=== PATIENT | female | born 1960 | race Caucasian/White ===

== ENCOUNTER 2017-10-22 11:36 | Inpatient (IN) | payer MEDICAID ==
[2017-10-22] MEDS ORDERED: Sodium Chloride 0.9% 1,000 ML IV ONE (12:00)
--- NOTE | 2017-10-22 12:06 | ED Physician Chart ---
ED Chief Complaint/HPI - Patient Information Date Seen:: 10/22/17 Time Seen:: 11:40 Chief Complaint:: Abdominal Pain History of Present Illness:: onset x one day of intermittent, diffuse, crampy abdominal pain and flank pain; pt denies trauma, H/As, neck pain, C/P, SOB, cough, A/N/V/D/C, fever, chills, or urinary s/s Allergies:: Allergies Allergy/AdvReac Type Severity Reaction Status Date / Time No Known Allergies Allergy Verified 10/22/17 11:40 Vitals:: Vital Signs - 8 hr 10/22/17 11:41 Temp 97.4 F HR 74 RR 16 BP 146/84 O2 Sat % 100 Historian:: Patient Review:: Nurse's Note Reviewed ED Review of Systems - Review of Systems General/Constitutional: No fever, No chills, No weight loss, No weakness, No diaphoresis, No edema, No loss of appetite Skin: No skin lesions, No rash, No bruising Head: No headache, No light-headedness Eyes: No loss of vision, No pain, No diplopia ENT: No earache, No nasal drainage, No sore throat, No tinnitus Neck: No neck pain, No swelling, No thyromegaly, No stiffness, No mass noted Cardio Vascular: No chest pain, No palpitations, No PND, No orthopnea, No edema Pulmonary: No SOB, No cough, No sputum, No wheezing GI: Nausea, Vomiting, Diarrhea, Pain, No melena, No hematochezia, No constipation, No hematemesis G/U: No dysuria, No frequency, No hematuria, No nacturia [employer] 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: No vaginal discharge, No abnormal vaginal bleed, No contraction Musculoskeletal: No bone or joint pain, No back pain, No muscle pain Endocrine: No polyuria, No polydipsia Psychiatric: No prior psych history, No depression, No anxiety, No suicidal ideation, No homicidal ideation, No auditory hallucination, No visual hallucination Hematopoietic: No bruising, No lymphadenopathy Allergic/Immuno: No urticaria, No angioedema Neurological: No syncope, No focal symptoms, No weakness, No paresthesia, No headache, No seizure, No dizziness, No confusion, No vertigo ED Past Medical History - Past Medical History Obtainable: Yes Past Medical History: Renal stone Family History: HTN Social History: Non Smoker, No Alcohol, No Drug Use, Surgical History: Psychiatricy History: None Medication: Reviewed Family Medical History - Family Member Mother History Unknown: Yes ED Physical Exam - Physical Examination General/Constitutional: Awake, Well-developed, well-nourished, Alert, No distress, GCS 15, Non-toxic appearing, Ambulatory Head: Atraumatic Eyes: Lids, conjuctiva normal, PERRL, EOMI Skin: Nl inspection, No rash, No skin lesions, No ecchymosis, Well hydrated, No lymphadenopathy ENMT: External ears, nose nl, TM canals nl, Nasal exam nl, Lips, teeth, gums nl , Oropharynx nl, Tonsils nl Neck: Nontender, Full ROM w/o pain, No JVD, No nuchal rigidity, No bruit, No mass, No stridor Respiratory: Nl effort/Exclusion, Clear to Auscultation, No Wheeze/Rhonchi/Rales Cardio Vascular: RRR, No murmur, gallop, rubs, NL S1 S2, Carotid/Femoral/Distal pulses equal bilaterally GI: No organomegaly, No hernia, Normal BS's, Nondistended, No mass/bruits, No McBurney tenderness, Rectum exam nl Other GI comments:: + Tenderness especially at epigastrium : No CVA tenderness Extremities: No tenderness or effusion, Full ROM, normal strength in all extremities, No edema, Normal digits & nails Neuro/Psych: Alert/oriented, DTR's symmetric, Normal sensory exam, Normal motor strength, Judgement/insight normal, Mood normal, Normal gait, No focal deficits Misc: Normal back, No paraspinal tenderness ED Labs/Radiology/EKG Results - Lab Results Comments:: Lipase: 517; Na+: 134; U/A: + Pyuria; + Hematuria - Radiology Results Comments:: + Left Staghorn Renal Calculi - EKG Interpretations EKG Time:: 12:30 Rate & Rhythm: 74; NSR Comments:: non-specific st-t changes ED Septic Shock - . Is Septic Shock (SBP<90, OR Lactate>4 mmol\L) present?: No - <6hrs of presentation: Vital Signs: Vital Signs - 8 hr 10/22/17 11:41 Temp 97.4 F HR 74 RR 16 BP 146/84 O2 Sat % 100 ED Reassessment (Disposition) - Reassessment Reassessment Condition:: Improved - Diagnosis Diagnosis:: Abdominal Pain; Epigastric Pain; Flank Pain; Nephrolithiasis; UTI; Hematuria; Sepsis; Pancreatitis - Aftercare/Follow up Instructions Aftercare/Follow-Up Instructions:: Counseled pt regarding lab results/diagnosis & need follow up, Counseled pt & family regarding lab results/diagnosis & need follow up - Patient Disposition Discharge/Transfer:: Acute Care w/in this hosp Accepting Physician:: Dr. Prado Time Called:: 1340 Time Responded:: 13:40 Admitted to:: Med/Surg Spoke to:: Dr. Prado Admitting Medical Physician:: Dr. Prado Condition at Disposition:: Stable, Improved ED Discharge Plan - Patient Disposition Admit/Discharge/Transfer: Acute Care w/in this hosp
[2017-10-22 12:17] LABS: URINE MICROSCOPIC INDICATED? YES; URINE SOURCE CLEAN C
[2017-10-22 12:23] LABS: % BASOPHILS 0.4 % (0.0-2.0); % EOSINOPHILS 1.1 % (0.0-5.0); % LYMPHOCYTES 32.6 % (20.0-50.0); % MONOCYTES 6.1 % (2.0-10.0); % NEUTROPHILS 59.8 % (40.0-80.0); EOSINOPHILE ABSOLUTE 0.1 Th/cmm (0.1-0.4); HEMATOCRIT 37.8 % (41.0-60); HEMOGLOBIN 12.9 gm/dL (12-16); LYMPHOCYTE ABSOLUTE 2.4 Th/cmm (1.5-3.0); MEAN CELL VOLUME 91.5 fl (81-100); MEAN CORPUSCULAR HEMOGLOBIN 31.1 pg (27.0-31.0); MEAN PLATELET VOLUME 7.4 fl; MONOCYTE ABSOLUTE 0.5 Th/cmm (0.3-1.0); NEUTROPHILE ABSOLUTE 4.5 Th/cmm (1.8-8.0); PLATELET COUNT 237 Th/cmm (150-400); RED BLOOD COUNT 4.14 Mil/cmm (3.80-5.10); RED CELL DISTRIBUTION WIDTH 12.5 % (11.5-20.0); WHITE BLOOD COUNT 7.5 Th/cmm (4.8-10.8)
[2017-10-22 12:28] LABS: URINE BILIRUBIN NEGATIVE (NEGATIVE); URINE BLOOD SMALL (NEGATIVE); URINE GLUCOSE (UA) NEGATIVE (NEGATIVE); URINE KETONE NEGATIVE (NEGATIVE); URINE LEUKOCYTE ESTERASE MODERATE (NEGATIVE); URINE NITRATE POSITIVE (NEGATIVE); URINE PROTEIN NEGATIVE (NEGATIVE); URINE UROBILINOGEN 0.2 E.U./dL (0.2 - 1.0)
[2017-10-22 12:30] LABS: INR 0.9 (0.5-1.4); PROTHROMBIN TIME (TEST) 9.3 SECONDS (9.5-11.5)
[2017-10-22 12:30] LABS: URINE CLARITY HAZY (CLEAR); URINE COLOR YELLOW
[2017-10-22 12:34] LABS: URINE BACTERIA MANY /hpf (NONE SEEN); URINE EPITHELIAL CELLS MODERATE /lpf (FEW); URINE WBC 25-50 /hpf (0-5)
[2017-10-22 12:37] LABS: ALB/GLOB RATIO 1.1 (1.0-1.8); ALKALINE PHOSPHATASE 90 U/L (34-104); ANION GAP 8.7 (7.0-16.0); BILIRUBIN,TOTAL 0.4 mg/dL (0.3-1.0); BUN - UREA NITROGEN 15 mg/dL (7-25); CALCIUM SERUM 9.3 mg/dL (8.6-10.3); CARBON DIOXIDE 24.8 mEq/L (21.0-31.0); CHLORIDE 104 mEq/L (98-107); CHOLESTEROL 227 mg/dL (<200); CREATININE - SERUM 0.8 mg/dL (0.6-1.2); CREATININE KINASE 70 U/L (30-223); GFR AFRICAN-AMERICAN > 60.0 ml/min (>90); GFR NON AFRICAN-AMERICAN > 60.0 ml/min; GLUCOSE 93 mg/dL (70-105); HDL -HIGH DENSITY LIPOPROTEIN 53 mg/dL (23-92); POTASSIUM SERUM 3.5 mEq/L (3.5-5.1); SGOT 26 U/L (13-39); SGPT/ALT 29 U/L (7-52); SODIUM SERUM 134 mEq/L (136-145); TOTAL PROTEIN,SERUM 7.5 gm/dL (6.0-8.3); TRIGLYCERIDES 199 mg/dL (<150)
[2017-10-22 12:38] LABS: AMYLASE SERUM 68 U/L (29-103); LIPASE 517 U/L (11-82)
[2017-10-22] MEDS ORDERED: cefTRIAXone 1 GM in Sodium Chloride 0.9% 50 ML IV ONE (14:53)
[2017-10-22] MEDS ORDERED: Morphine Sulfate 2 mg/mL 1mL Syr IV STA (17:49)
[2017-10-22] MEDS ORDERED: Morphine Sulfate 2 mg/mL 1mL Syr ONE (17:52)
[2017-10-22] MEDS ORDERED: Morphine Sulfate 2 mg/mL 1mL Syr IVP PRN (18:14)
[2017-10-22] MEDS: D5-0.45NS 1,000 ML IV SCH (20:30)
[2017-10-22] MEDS: Gentamicin 100mg/100mL Premix Bag IV SCH (21:40)
[2017-10-22] MEDS ORDERED: Gentamicin 80 mg/2mL Vial ONE (23:20)
[2017-10-22] MEDS: Hydrocodone/APAP 10 mg/325 mg Tab PO PRN (23:43)
[2017-10-23 02:21] VITALS: BP 142/75
[2017-10-23] MEDS ORDERED: Gentamicin 80 mg/2mL Vial ONE (05:48)
[2017-10-23 05:53] LABS: % BASOPHILS 0.2 % (0.0-2.0); % LYMPHOCYTES 32.8 % (20.0-50.0); EOSINOPHILE ABSOLUTE 0.1 Th/cmm (0.1-0.4); HEMATOCRIT 36.6 % (41.0-60); HEMOGLOBIN 12.5 gm/dL (12-16); LYMPHOCYTE ABSOLUTE 1.7 Th/cmm (1.5-3.0); MEAN CELL VOLUME 91.4 fl (81-100); MEAN CORPUSCULAR HEMOGLOBIN 31.2 pg (27.0-31.0); MEAN CORPUSCULAR HGB CONC 34.1 pg (28.0-36.0); MEAN PLATELET VOLUME 7.4 fl; MONOCYTE ABSOLUTE 0.4 Th/cmm (0.3-1.0); NEUTROPHILE ABSOLUTE 3.1 Th/cmm (1.8-8.0); PLATELET COUNT 227 Th/cmm (150-400); RED BLOOD COUNT 4.01 Mil/cmm (3.80-5.10); RED CELL DISTRIBUTION WIDTH 12.6 % (11.5-20.0)
[2017-10-23 05:55] LABS: WHITE BLOOD COUNT 5.3 Th/cmm (4.8-10.8)
[2017-10-23] MEDS: Gentamicin 100mg/100mL Premix Bag IV SCH (06:00)
[2017-10-23 06:03] LABS: ALB/GLOB RATIO 1.2 (1.0-1.8); ALBUMIN 3.7 gm/dL (3.7-5.3); ALKALINE PHOSPHATASE 88 U/L (34-104); BILIRUBIN,TOTAL 0.5 mg/dL (0.3-1.0); BUN - UREA NITROGEN 10 mg/dL (7-25); CALCIUM SERUM 9.2 mg/dL (8.6-10.3); CARBON DIOXIDE 27.6 mEq/L (21.0-31.0); CHLORIDE 105 mEq/L (98-107); CREATININE - SERUM 0.8 mg/dL (0.6-1.2); GFR AFRICAN-AMERICAN > 60.0 ml/min (>90); GFR NON AFRICAN-AMERICAN > 60.0 ml/min; GLUCOSE 116 mg/dL (70-105); LIPASE 31 U/L (11-82); POTASSIUM SERUM 3.6 mEq/L (3.5-5.1); SGOT 20 U/L (13-39); SGPT/ALT 25 U/L (7-52); SODIUM SERUM 137 mEq/L (136-145); TOTAL PROTEIN,SERUM 6.9 gm/dL (6.0-8.3)
[2017-10-23] MEDS: D5-0.45NS 1,000 ML IV SCH ×2 (06:17→15:08)
--- NOTE | 2017-10-23 08:51 | Diagnostic Imaging Report ---
CT abdomen and pelvis without intravenous contrast Indication: Abdominal pain Comparison: Ultrasound abdomen the same day, Technique: Axial images were obtained from the lung bases to the bilateral proximal femurs without IV contrast. Coronal reconstructions were made. total DLP: 401, CTDI8.9 FINDINGS: Hypoventilatory and atelectatic changes of the lung bases are noted. Assessment of the solid organs is limited due to lack of IV contrast. No evidence of focal hepatic lesions. No focal splenic lesions. No focal pancreatic or adrenal lesions. There is a large right staghorn renal Calculus extending from the lower pole to the upper pole measuring up to 4.1 cm. Additional smaller superior pole right renal calculi are seen measuring up to 8 mm. There is right sided hydronephrosis primarily affecting the superior pole. No evidence of left-sided renal stones. Mild right hydroureter is seen with no radiopaque stones. Minimal diverticulosis is noted. No evidence of diverticulitis. Fluid-filled appendix is noted without evidence of surrounding inflammation. Small fat-containing umbilical hernia is noted. Minimal calcification noted along the iliac vein branch is noted. No free air or free fluid. The osseous structures demonstrate no acute abnormalities. IMPRESSION: Large Right staghorn right renal calculus and additional smaller stones along the superior pole. There is associated hydronephrosis involving the superior pole. Right renal scarring is also noted. Mild right hydroureter is seen with no radiopaque stones identified. Minimal diverticulosis without evidence of diverticulitis. Fluid-filled appendix without evidence of inflammation to suggest acute process. Small fat-containing umbilical hernia.
--- NOTE | 2017-10-23 09:03 | Diagnostic Imaging Report ---
Ultrasound abdomen HISTORY: Abdominal pain, pancreatitis COMPARISON: CT abdomen and pelvis performed the same day Technique: Sonography of the abdomen was performed in multiple planes. FINDINGS: Exam is limited due to bowel gas The liver demonstrates normal echogenicity with no evidence of focal lesions. The liver measures 18.9 cm. Distended gallbladder is noted. No evidence of gallstones or gallbladder wall thickening. The common bile duct was not well visualized.. Evaluation of the pancreas is limited due to bowel gas. The right kidney measures 9.1 x 4.7 cm. There is an anechoic area within the superior pole measuring 2.6 x 2.4 cm. Large echogenic areas are seen within the renal hilum the largest measuring 3.3 x 1.4 cm. The left kidney measures 10.9 x 5.9 cm. No evidence of focal lesions or hydronephrosis. The left renal margin lung well-defined due to bowel gas. The spleen was not well-visualized. The visualized portions of the abdominal aorta are normal in size. IMPRESSION: Suboptimal assessment of pancreas due to bowel gas. Please refer to today's CT exam for additional details. 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 There is anechoic area along the superior pole likely suggestive of patient's hydronephrosis involving the right superior pole. Mild hepatomegaly. Distended gallbladder. No evidence of gallstones or gallbladder wall thickening.
[2017-10-23] MEDS ORDERED: Probiotic Screen MC PRN (12:00)
--- NOTE | 2017-10-23 12:24 | History & Physical ---
ADMIT DATE: 10/23/2017 PATIENT'S IDENTIFICATION: A 57-year-old female. CHIEF COMPLAINT: Abdominal pain. HISTORY OF PRESENT ILLNESS: A 57-year-old [place]oan female with history of kidney stone diagnosed 4 years ago, presented to Emergency Room for acute onset of abdominal pain associated with nausea. The patient was worked up in the Emergency Room, noted to have elevated lipase and staghorn calculi. The patient is admitted to the hospital for further treatment. 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 PAST MEDICAL HISTORY: Remarkable for kidney stone, but negative for diabetes, hypertension, kidney disease, or liver disease. MEDICATIONS AT HOME: None. ALLERGIES: None. SOCIAL HISTORY: Lives in [place] with her daughter. The patient has no smoking cigarette, alcohol, or drug use. FAMILY MEDICAL HISTORY: Remarkable for hypertension. REVIEW OF SYSTEMS: The patient currently denies any headache, blurred vision, double vision, dysphagia, odynophagia, runny nose, stuffy nose, fever, chills, cough, chest pain, shortness of breath, palpitation, dizziness, nausea, vomiting, diarrhea, dysuria, hematuria, hematochezia, melena. No seizure or syncopal episode. No weight loss or weight gain. PHYSICAL EXAMINATION: GENERAL: Alert, awake, oriented, lying in the bed without any acute distress. VITAL SIGNS: Temperature 96.9, pulse 64, respiratory rate 18, blood pressure 115/56. HEENT: Normocephalic, atraumatic. Extraocular muscles intact. Tongue more pink and coated. Poor dentition noted. No rubs. No exudate. No sinus tenderness. NECK: Supple, no JVD, no hepatojugular reflux. No lymphadenopathy, thyromegaly or carotid bruit. HEART: Both heart sounds are regular. No S3, no S4, no murmur. CHEST: Lung equal in expansion, no wheezing, no crackles. ABDOMEN: Soft, no guarding, no rigidity. Liver and spleen not palpable. No palpable mass. EXTREMITIES: No edema, no cyanosis, no clubbing. Pulses are +2. No calf tenderness noted. BACK: Remarkable for right costovertebral tenderness noted. NEUROLOGIC: Nonfocal. AVAILABLE DIAGNOSTIC DATA: White count 7.5, hemoglobin 12.9, platelet count 237. Sodium 134, potassium 3.5, chloride 104, CO2 24.8, BUN and creatinine is 15 and 0.8. Troponin 0.01. Lipase of 570. Amylase is 68. Urinalysis remarkable for small blood, nitrite positive, moderate leukocyte esterase, 25-50 WBC, many bacteria. Renal ultrasound remarkable for staghorn calculi. CT scan of the abdomen and pelvis done in the Emergency Room, which she did reveal large staghorn calculi with smaller stones on the superior pole noted. There is associated hydronephrosis involving the superior portion of the right. Renal scarring is also noted. Minimal diverticulosis noted. Fluid filled appendix without evidence of inflammation noted. CLINICAL IMPRESSION: 1. Staghorn calculi on right kidney. 2. Complicated urinary tract infection. 3. Mild pancreatitis. 4. Family history of hypertension. PLAN: 1. Admit the patient to Med/Surg. 2. IV fluid. 3. IV antibiotic. 4. Urology and GI consult. 5. General nursing care. 6. Blood cultures. 7. Urine cultures. 8. Follow lab. 9. Follow consult recommendation. 10. Care plan reviewed and discussed with staff. JOB# [id number]
[2017-10-23] MEDS ORDERED: Gentamicin 160 MG in Sodium Chloride 0.9% 100 ML IV SCH (14:00)
[2017-10-23] MEDS: Hydrocodone/APAP 10 mg/325 mg Tab PO PRN (15:06)
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
[2017-10-24 06:16] LABS: % BASOPHILS 0.6 % (0.0-2.0); % EOSINOPHILS 3.2 % (0.0-5.0); % MONOCYTES 8.1 % (2.0-10.0); % NEUTROPHILS 48.1 % (40.0-80.0); EOSINOPHILE ABSOLUTE 0.2 Th/cmm (0.1-0.4); HEMATOCRIT 38.7 % (41.0-60); HEMOGLOBIN 13.3 gm/dL (12-16); MEAN CELL VOLUME 91.8 fl (81-100); MEAN CORPUSCULAR HEMOGLOBIN 31.5 pg (27.0-31.0); MEAN CORPUSCULAR HGB CONC 34.3 pg (28.0-36.0); MEAN PLATELET VOLUME 7.4 fl; MONOCYTE ABSOLUTE 0.4 Th/cmm (0.3-1.0); NEUTROPHILE ABSOLUTE 2.5 Th/cmm (1.8-8.0); PLATELET COUNT 229 Th/cmm (150-400); RED BLOOD COUNT 4.21 Mil/cmm (3.80-5.10); RED CELL DISTRIBUTION WIDTH 12.7 % (11.5-20.0); WHITE BLOOD COUNT 5.1 Th/cmm (4.8-10.8)
[2017-10-24 06:44] LABS: ALB/GLOB RATIO 1.1 (1.0-1.8); ALBUMIN 3.8 gm/dL (3.7-5.3); ALKALINE PHOSPHATASE 87 U/L (34-104); ANION GAP 10.1 (7.0-16.0); BILIRUBIN,TOTAL 0.5 mg/dL (0.3-1.0); BUN - UREA NITROGEN 9 mg/dL (7-25); CALCIUM SERUM 9.4 mg/dL (8.6-10.3); CARBON DIOXIDE 27.7 mEq/L (21.0-31.0); CHLORIDE 105 mEq/L (98-107); CREATININE - SERUM 0.9 mg/dL (0.6-1.2); GFR AFRICAN-AMERICAN > 60.0 ml/min (>90); GFR NON AFRICAN-AMERICAN > 60.0 ml/min; GLUCOSE 103 mg/dL (70-105); POTASSIUM SERUM 3.8 mEq/L (3.5-5.1); SGOT 18 U/L (13-39); SGPT/ALT 22 U/L (7-52); SODIUM SERUM 139 mEq/L (136-145); TOTAL PROTEIN,SERUM 7.2 gm/dL (6.0-8.3)
--- NOTE | 2017-10-24 08:43 | Diagnostic Imaging Report ---
Exam: HIDA scan HISTORY: Distended gallbladder Findings: Utilizing 5.3 mCi of 90 9M Choletec examination of the gallbladder was obtained. The study demonstrates normal uptake of the radiopharmaceutical throughout the liver parenchyma. The gallbladder is normal. Normal excretion of the radiopharmaceutical is noted in the common bile duct and the bowel. IMPRESSION: normal HIDA scan.
[2017-10-24] MEDS ORDERED: Lactobacillus Rhamnosus GG 15 Billion CFU CAP.SPRINK PO SCH (09:00)
--- NOTE | 2017-10-24 10:52 | GI Progress Note ---
Subjective - Review of Systems Service Date: 10/24/17 Subjective: Abd pain resolved, still has R flank pain Objective - Results Result Diagrams: 10/24/17 05:35 10/24/17 05:35 Recent Labs: Laboratory Last Values WBC 5.1 Th/cmm (4.8-10.8) 10/24/17 05:35 RBC 4.21 Mil/cmm (3.80-5.10) 10/24/17 05:35 Hgb 13.3 gm/dL (12-16) 10/24/17 05:35 Hct 38.7 % (41.0-60) L 10/24/17 05:35 MCV 91.8 fl (81-100) 10/24/17 05:35 MCH 31.5 pg (27.0-31.0) H 10/24/17 05:35 MCHC Differential 34.3 pg (28.0-36.0) 10/24/17 05:35 RDW 12.7 % (11.5-20.0) 10/24/17 05:35 Plt Count 229 Th/cmm (150-400) 10/24/17 05:35 MPV 7.4 fl 10/24/17 05:35 Neutrophils % 48.1 % (40.0-80.0) 10/24/17 05:35 Lymphocytes % 40.0 % (20.0-50.0) 10/24/17 05:35 Monocytes % 8.1 % (2.0-10.0) 10/24/17 05:35 Eosinophils % 3.2 % (0.0-5.0) 10/24/17 05:35 Basophils % 0.6 % (0.0-2.0) 10/24/17 05:35 PT 9.3 SECONDS (9.5-11.5) L 10/22/17 12:10 INR 0.90 (0.5-1.4) 10/22/17 12:10 Sodium 139 mEq/L (136-145) 10/24/17 05:35 Potassium 3.8 mEq/L (3.5-5.1) 10/24/17 05:35 Chloride 105 mEq/L (98-107) 10/24/17 05:35 Carbon Dioxide 27.7 mEq/L (21.0-31.0) 10/24/17 05:35 Anion Gap 10.1 (7.0-16.0) 10/24/17 05:35 BUN 9 mg/dL (7-25) 10/24/17 05:35 Creatinine 0.9 mg/dL (0.6-1.2) 10/24/17 05:35 Est GFR ( Amer) > 60.0 ml/min (>90) 10/24/17 05:35 Est GFR (Non-Af Amer) > 60.0 ml/min 10/24/17 05:35 BUN/Creatinine Ratio 10.0 10/24/17 05:35 Glucose 103 mg/dL (70-105) 10/24/17 05:35 Calcium 9.4 mg/dL (8.6-10.3) 10/24/17 05:35 Total Bilirubin 0.5 mg/dL (0.3-1.0) 10/24/17 05:35 AST 18 U/L (13-39) 10/24/17 05:35 ALT 22 U/L (7-52) 10/24/17 05:35 Alkaline Phosphatase 87 U/L (34-104) 10/24/17 05:35 Creatine Kinase 70 U/L (30-223) 10/22/17 12:10 Troponin I < 0.01 ng/mL (0.01-0.05) L 10/22/17 12:10 B-Natriuretic Peptide 41.7 pg/mL (5.0-100.0) 10/22/17 12:10 Total Protein 7.2 gm/dL (6.0-8.3) 10/24/17 05:35 Albumin 3.8 gm/dL (3.7-5.3) 10/24/17 05:35 Globulin 3.4 gm/dL 10/24/17 05:35 Albumin/Globulin Ratio 1.1 (1.0-1.8) 10/24/17 05:35 Triglycerides 199 mg/dL (<150) H 10/22/17 12:10 Cholesterol 227 mg/dL (<200) H 10/22/17 12:10 LDL Cholesterol Direct 145 mg/dL (75-193) 10/22/17 12:10 HDL Cholesterol 53 mg/dL (23-92) 10/22/17 12:10 Amylase 68 U/L (29-103) 10/22/17 12:10 Lipase 31 U/L (11-82) 10/23/17 05:13 Urine Source CLEAN C 10/22/17 12:00 Urine Color YELLOW 10/22/17 12:00 Urine Clarity HAZY (CLEAR) 10/22/17 12:00 Urine pH 6.0 (4.6 - 8.0) 10/22/17 12:00 Ur Specific [place] 1.025 (1.005-1.030) 10/22/17 12:00 Urine Protein NEGATIVE mg/dL (NEGATIVE) 10/22/17 12:00 Urine Glucose (UA) NEGATIVE mg/dL (NEGATIVE) 10/22/17 12:00 Urine Ketones NEGATIVE mg/dL (NEGATIVE) 10/22/17 12:00 Urine Blood SMALL (NEGATIVE) H 10/22/17 12:00 Urine Nitrate POSITIVE (NEGATIVE) H 10/22/17 12:00 Urine Bilirubin NEGATIVE (NEGATIVE) 10/22/17 12:00 Urine Urobilinogen 0.2 E.U./dL (0.2 - 1.0) 10/22/17 12:00 Ur Leukocyte Esterase MODERATE (NEGATIVE) H 10/22/17 12:00 Urine RBC 2-5 /hpf (0-5) 10/22/17 12:00 Urine WBC 25-50 /hpf (0-5) H 10/22/17 12:00 Ur Epithelial Cells MODERATE /lpf (FEW) 10/22/17 12:00 Urine Bacteria MANY /hpf (NONE SEEN) H 10/22/17 12:00 Urine Test NEGATIVE 10/22/17 12:00 - Physical Exam Vitals and I&O: Vital Signs Temp 97.3 F 10/24/17 10:41 Pulse 64 10/24/17 10:41 Resp 18 10/24/17 10:41 BP 125/61 10/24/17 10:41 Pulse Ox 98 10/24/17 10:41 Intake & Output 10/23/17 10/24/17 10/24/17 18:59 06:59 18:59 Intake Total 1880.667 350 Output Total 302 Balance 1578.667 350 Weight (lbs) 64.818 kg 64.41 kg Intake: Intake, IV Amount 1040.667 50 Cefepime 1 gm In Dextrose 50 50 5% 50 ml @ 100 mls/hr IV Q12HR [facility] Rx#:[id number] D5-0.45NS 1,000 ml @ 100 886.667 mls/hr IV .Q10H [facility] Rx#: [id number] Gentamicin 160 mg In 104 Sodium Chloride 0.9% 100 ml @ 100 mls/hr IV Q24H [facility] Rx#:[id number] Oral 840 300 Output: Urine 302 Stool 0 Other: # Voids 3 3 # Bowel Movements 0 Active Medications: Current Medications Acetaminophen/Hydrocodone Bitart ([place] 10 Mg/325 Mg) 1 tab PO Q6H PRN PRN Reason: Abdominal Pain Stop: 12/21/17 23:32 Last Admin: 10/23/17 15:06 Dose: 1 tab Dextrose/Sodium Chloride (D5-0.45ns) 1,000 mls @ 100 mls/hr IV .Q10H [facility] Stop: 12/21/17 18:14 Last Infusion: 10/23/17 17:01 Dose: 100 mls/hr Cefepime HCl 1 gm/ Dextrose 50 mls @ 100 mls/hr IV Q12HR [facility] Stop: 12/21/17 20:59 Last Admin: 10/24/17 08:29 Dose: 100 mls/hr Gentamicin Sulfate 160 mg/ (Sodium Chloride) 104 mls @ 100 mls/hr IV Q24H [facility] Stop: 12/22/17 13:59 Last Infusion: 10/23/17 16:15 Dose: Infused Lactobacillus Rhamnosus (Culturelle 15b) 1 each PO DAILY [facility] Stop: 12/23/17 08:59 Last Admin: 10/24/17 08:29 Dose: 1 each Lorazepam (Ativan) 1 mg IVP Q4H PRN; Protocol PRN Reason: Anxiety/Agitation Stop: 12/21/17 18:13 Miscellaneous (Gentamicin Iv Per Pharmacy) 1 ea MC PRN [facility] Stop: 12/21/17 19:44 Miscellaneous (Probiotic Screen) 1 ea PRN PRN PRN Reason: PROTOCOL Stop: 12/22/17 11:59 Morphine Sulfate (Morphine) 2 mg IVP Q4H PRN PRN Reason: Severe Pain Stop: 12/21/17 18:13 Ondansetron HCl (Zofran) 4 mg IVP Q6H PRN PRN Reason: Nausea / Vomiting Stop: 12/21/17 18:13 Last Admin: 10/23/17 17:25 Dose: 4 mg Temazepam (Restoril) 15 mg PO HS PRN; Protocol PRN Reason: Insomnia Stop: 12/21/17 18:13 General: Alert, Oriented x3 Neck: Supple Cardiovascular: Regular rate Lungs: Clear to auscultation Abdomen: Bowel sounds, Soft, Obese, no Tender, no Hepatomegaly, no Distended, no Rebound, no Mass Skin: no Rash Psych/Mental Status: Mental status NL Assessment/Plan - Assessment Assessment: # Abd pain # Mild pancreatitis # Nausea Pt's epigastric pain is vastly improved, and I suspect there was a large component of pain related to her UTI and R large kidney stone. She feels better with antibiotics at this point, and tolerating a diet Plan: - urology eval for her R stone - daily PPI - diet as tolerated - abx for UTI as per primary GI to see as needed, please call with any questions
--- NOTE | 2017-10-24 11:32 | Progress Notes ---
DATE: 10/24/2017 PATIENT'S IDENTIFICATION: A 57-year-old female. SUBJECTIVE: The patient seen and examined. The patient denies any chest pain, shortness of breath, palpitation, dizziness, nausea, vomiting. Abdominal pain is completely resolved. The patient's HIDA scan is normal. Urine culture remarkable for 100 Gram-negative rods, ID susceptibilities are not available. PHYSICAL EXAMINATION: VITAL SIGNS: See nurse's note. HEENT: Poor dentition. NECK: Supple, no JVD. HEART: Regular, no murmur. CHEST: Lung equal in expansion. LUNGS: No wheezing, no crackles. ABDOMEN: Soft. EXTREMITIES: No edema. NEUROLOGIC: Nonfocal. IMPRESSIONS: 1. Staghorn calculi. 2. Complicated urinary tract infection. 3. Mild pancreatitis, resolved. PLAN: 1. Awaiting Urology input. 2. The patient can be discharged home on p.o. antibiotic. Once ID culture and sensitivity is available, the patient can have outpatient followup with primary care doctors for urological workup for her staghorn calculi. JOB# [id number]
--- NOTE | 2017-10-24 20:58 | Consultation ---
DATE OF CONSULTATION: 10/24/2017 UROLOGY CONSULTATION REASON FOR CONSULTATION: Flank pain and stone. HISTORY OF PRESENT ILLNESS: This is a 57-year-old woman who came to the Emergency Room with abdominal and flank pain and nausea. There was no fever and no dysuria or hematuria. Apparently, she has had stones for many years, first operated upon in [place] and subsequently, found 4-5 years ago by another doctor here, but without any followup. It has now grown to a staghorn size. SURGICAL HISTORY: x 4, stone operation, skin grafting for stout. HOME MEDICATIONS: None. ALLERGIES: None. MEDICAL HISTORY: Negative for diabetes, hypertension or heart disease. SOCIAL HISTORY: Lives with her daughter without smoking, alcohol or drug use. REVIEW OF SYSTEMS: No fever, weight loss, headache or seizures. Denies chest pain, coughing or shortness of breath. Had right upper quadrant abdominal pain with nausea. No vomiting or diarrhea. Denies dysuria or hematuria. No skin or joint problems. PHYSICAL EXAMINATION: GENERAL: On exam, she is awake, alert, oriented, healthy pleasant woman. VITAL SIGNS: Temperature 97.5, heart rate 71, blood pressure 140/79. No evidence of any fever in the hospital. HEAD AND NECK: Normocephalic. Trachea is central. Pupils equal and reactive. No jaundice. Thyroid and lymph nodes not palpable. Carotid bruit absent. CHEST: Symmetrical. LUNGS: Clear. No rales or rhonchi. HEART: Sounds normal, in sinus rhythm, no murmur. ABDOMEN: Soft, tender in the right upper quadrant and right flank on percussion. No organomegaly, mass or hernia. EXTREMITIES: No edema or lymphadenopathy. NEUROLOGIC: Nonfocal. Moves all 4 limbs. LABORATORY AND DIAGNOSTIC: CT scan shows a staghorn calculus in the right kidney occupying the renal pelvis and the lower calices. None in the left one. The renal cortex is well preserved, fortunately. I discussed this with the radiologist as well. White count has been normal since admission at 5.1, hemoglobin 13.3. PT/INR normal. Sodium and potassium are normal. BUN 9 and creatinine 0.9. Liver functions are normal. Urine showed nitrites and leukocyte esterase and several white cells consistent with infection and a staghorn calculus. Cultures show E. coli resistant to Cipro and Levaquin, sensitive to ceftazidime and amikacin only. Ultrasound of the abdomen showed a right kidney stone, mild hepatomegaly, distended gallbladder without stones and a nuclear scan of the gallbladder was normal. IMPRESSION: Large staghorn calculus in the right kidney, requires definitive procedure, most probably percutaneous nephrolithotomy or as a second choice ESWL in several stages maybe 2 or 3 to remove the entire stone burden, this may also include ureteroscopy. The patient was explained this in great details cautioning her that she will lose her kidney if she does not have this treated in a timely fashion by Urology. She does not require antibiotics at this point, which would only make her more and more resistant in the presence of this large stone and absence of any clinical infection with normal white count and no fever. She should also refrain from using opioids on a long-term basis as addiction will be another major complication of this. JOB# [id number]
== END 2017-10-24 16:24 | disposition home or self-care (01) | DRG 720 ==
LOC: ER 11:36 → MSI 19:00
PROVIDERS: ADMIT Internal Medicine; ATTEND Internal Medicine
DX: A41.9 Sepsis, unspecified organism (principal); K85.90 Acute pancreatitis without necrosis or infection, unspecified; K82.8 Other specified diseases of gallbladder; N39.0 Urinary tract infection, site not specified; B96.20 Unspecified Escherichia coli [E. coli] as the cause of diseases classified elsewhere; I10 Essential (primary) hypertension; K21.9 Gastro-esophageal reflux disease without esophagitis; N13.2 Hydronephrosis with renal and ureteral calculous obstruction; Z79.899 Other long term (current) drug therapy; Z82.49 Family history of ischemic heart disease and other diseases of the circulatory system
CPT/HCPCS: 36415-UA; 76700-TC; 78226-TC; 80053-TC; 80061-TC; 81001-TC; 81025-TC; 82150-TC; 82550-TC; 83690-TC; 83880-TC; 84484-TC; 85025-TC; 85610-TC; 87086-90; 93005; 94760; 96375; A9537; J0692; J0696; J1580; J2270; J2405; J7030; Z7610

== ENCOUNTER 2018-11-22 18:47 | Emergency (ER) | payer MEDICAID ==
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
--- NOTE | 2018-11-23 07:11 | Diagnostic Imaging Report ---
Chest x-ray 2 views HISTORY: Difficulty breathing COMPARISON: None The overall heart size is normal. No focal pulmonary processes. No hilar or mediastinal abnormalities. IMPRESSION: No acute abnormalities.
== END 2018-11-22 20:54 | disposition home or self-care (01) ==
LOC: ER 18:47
DX: S43.401A Unspecified sprain of right shoulder joint, initial encounter (principal); X58.XXXA Exposure to other specified factors, initial encounter; Y93.89 Activity, other specified; Y92.89 Other specified places as the place of occurrence of the external cause; Y99.8 Other external cause status
CPT/HCPCS: 71046-TC; Z7502; Z7610